=== PATIENT | female | born 2000 ===

== ENCOUNTER 2025-04-05 08:30 | Outpatient (CLI) | payer BC | END 2025-04-05 08:31 | disposition home or self-care (01) | LOC: CSHSLEEP 08:30 | PROVIDERS: ATTEND Physician Assistant | DX: G47.33 Obstructive sleep apnea (adult) (pediatric) (principal); R53.83 Other fatigue; R09.89 Other specified symptoms and signs involving the circulatory and respiratory systems; G25.89 Other specified extrapyramidal and movement disorders; R41.89 Other symptoms and signs involving cognitive functions and awareness; F41.9 Anxiety disorder, unspecified; E66.9 Obesity, unspecified; Z68.35 Body mass index [BMI] 35.0-35.9, adult; R06.83 Snoring; G47.00 Insomnia, unspecified; G47.10 Hypersomnia, unspecified | CPT/HCPCS: 95800 ==